=== PATIENT | female | born 1935 | race Caucasian/White ===

== ENCOUNTER 2022-08-10 10:22 | Emergency (ER) | payer MEDICARE, OTHER ==
[~2022-08-10] VITALS: Ht 152 cm; Wt 80.0 kg
[2022-08-10 10:55] LABS: BASOPHILS # (AUTO) 0.1 10^3/uL (0.0-0.1); BASOPHILS % (AUTO) 1 % (0-10); EOSINOPHILS # (AUTO) 0.1 10^3/uL (0.0-0.3); EOSINOPHILS % (AUTO) 1 % (0-10); HEMATOCRIT 39 % (35-52); HEMOGLOBIN 13.2 g/dL (11.5-16.0); LYMPHOCYTES # (AUTO) 1.7 10^3/uL (1.0-4.0); LYMPHOCYTES % (AUTO) 22 % (12-44); MEAN CORPUSCULAR HEMOGLOBIN 32 pg (25-34); MEAN CORPUSCULAR HGB CONC 34 g/dL (32-36); MEAN CORPUSCULAR VOLUME 95 fL (80-99); MEAN PLATELET VOLUME 8.7 fL (9.0-12.2); MONOCYTES # (AUTO) 0.5 10^3/uL (0.0-1.0); MONOCYTES % (AUTO) 7 % (0-12); NEUTROPHILS # (AUTO) 5.3 10^3/uL (1.8-7.8); NEUTROPHILS % (AUTO) 69 % (42-75); PLATELET COUNT 274 10^3/uL (130-400); WHITE BLOOD COUNT 7.7 10^3/uL (4.3-11.0)
--- NOTE | 2022-08-10 11:05 | Diagnostic Imaging Report ---
CHEST 1 VIEW AP/PA ONLY Indication: Back pain Comparison: None available. Findings: Patchy opacities are present in the right mid and left lower lung zones. No pleural effusion or pneumothorax. Normal heart size. Impression: 1. Ill-defined bilateral pulmonary opacities are most likely due to atelectasis. Atypical infection is also possibility. Dictated by: Dictated on workstation # [id number]
--- NOTE | 2022-08-10 11:06 | Diagnostic Imaging Report ---
SHOULDER 2 VIEW LEFT INDICATION: Left shoulder pain COMPARISON: None available. TECHNIQUE: 2 views left shoulder FINDINGS: No acute fracture. The glenohumeral and acromioclavicular joints are normal in alignment. Osteoarthritis of the acromioclavicular joint. Subacromial space is well preserved. No abnormal soft tissue mineralizations. Left axillary lymph node dissection. IMPRESSION: No fracture about the left shoulder. Dictated by: Dictated on workstation # [id number]
[2022-08-10 11:21] LABS: ALANINE AMINOTRANSFERASE 11 U/L (0-55); ALBUMIN 3.8 GM/DL (3.2-4.5); ALKALINE PHOSPHATASE 98 U/L (40-136); BILIRUBIN,TOTAL 0.3 MG/DL (0.1-1.0); BUN/CREATININE RATIO 24; CALCIUM 9.1 MG/DL (8.5-10.1); CARBON DIOXIDE 20 MMOL/L (21-32); CHLORIDE 106 MMOL/L (98-107); CREATININE SERUM 1.35 MG/DL (0.60-1.30); GFR ESTIMATED 39; GLUCOSE 152 MG/DL (70-105); POTASSIUM 4.2 MMOL/L (3.6-5.0); SODIUM 138 MMOL/L (135-145); TOTAL PROTEIN 6.9 GM/DL (6.4-8.2)
[2022-08-10 11:25] LABS: PROTHROMBIN TIME PATIENT 12.4 SEC (12.2-14.7)
[2022-08-10 11:26] LABS: INR 0.9 (0.8-1.4)
--- NOTE | 2022-08-10 11:38 | Diagnostic Imaging Report ---
SHOULDER 2 VIEW RIGHT INDICATION: Right shoulder pain COMPARISON: None available. TECHNIQUE: 2 views of right shoulder FINDINGS: No acute fracture. The glenohumeral and acromioclavicular joints are normal in alignment. Mild degenerative arthritis of the glenohumeral joint. Subacromial space is well preserved. No abnormal soft tissue mineralizations. IMPRESSION: No acute osseous abnormality about the right shoulder. Dictated by: Dictated on workstation # [id number]
[2022-08-10] MEDS ORDERED: HYDROcodone/APAP 5 MG/325 MG (LORTAB) TAB PO ONE (12:15)
--- NOTE | 2022-08-10 12:17 | ED Upper Extremity ---
General Chief Complaint: Back Problems Stated Complaint: BACK PAIN Nursing Triage Note: Patient has presented to ER by EMS with cc of upper back and bilateral shoulder pain. Patient has stated that hurt her shoulder on 08/03/2022 - she was buckling her seat belt and hurt her left shoulder. It has hurt ever since the . She states that over the last few days both of her shoulder hurt. She reports that her right shoulder was severe this morning. She denies any other known injury or trauma to her back and shoulders. She reports taking meloxicam and tyelnol arthritis for the pain. Source: patient, EMS, RN notes reviewed, EMS notes reviewed Exam Limitations: no limitations History of Present Illness Date Seen by Provider: Aug 10, 2022 Time Seen by Provider: 11:30 Initial Comments 86-year-old right-handed female patient brought in by EMS because of bilateral shoulder pain. Patient complaining of left shoulder pain since August 03 after she tried to buckling her seatbelt as a constant pain that getting worse with movement. Patient stated she gradually started to have pain in the right shoulder and this morning her right shoulder was 9/10. Patient denies focal neurodeficit, nausea and vomiting, chest pain, shortness of breath, other injuries. EMS reported that family told them she became more anxious since she finalize her arrangement 1 week ago. Allergies and Home Medications Allergies Coded Allergies: No Known Allergies (Verified Allergy, Unknown, 08/10/22) Patient Home Medication List Home Medication List Reviewed: Yes Hydrocodone/Acetaminophen (Hydrocodone-Acetamin 5-325 mg) 5 Mg-325 Mg Tablet, 1 TAB PO Q6H PRN for PAIN-MODERATE (5-7) Prescribed by: Anai john on 08/10/22 1219 Review of Systems Constitutional: no symptoms reported EENTM: no symptoms reported Respiratory: no symptoms reported Cardiovascular: no symptoms reported Gastrointestinal: no symptoms reported Genitourinary: no symptoms reported Musculoskeletal: see HPI Skin: no symptoms reported Psychiatric/Neurological: See HPI All Other Systems Reviewed Negative Unless Noted: Yes Past Henvdcn-Tgexlm-Cfhlsa Hx Patient Social History Tobacco Use?: No Use of E-Cig and/or Vaping dev: No Substance use?: No Alcohol Use?: No Physical Exam Vital Signs Vital Signs - First Documented 08/10/22 11:00 Temp 35.6 Pulse 71 Resp 20 B/P (MAP) 148/99 (115) Pulse Ox 95 O2 Delivery Room Air Capillary Refill : Height, Weight, BMI Height: '" Weight: lbs. oz. kg; 34.00 BMI Method: General Appearance: mild distress (Anxious), obese HEENT: PERRL/EOMI, normal ENT inspection Neck: non-tender, full range of motion Cardiovascular: regular rate, rhythm, no edema, no gallop Respiratory: chest non-tender, lungs clear, normal breath sounds, no respiratory distress Gastrointestinal: normal bowel sounds, non tender, soft Shoulder: normal inspection, non-tender, swelling (Painful range of motion without deformity or tenderness of bilateral shoulders) Elbow/Forearm: normal inspection Wrist: Yes normal inspection Hand: normal inspection Neurologic/Tendon: normal sensation, normal motor functions Neurologic/Psychiatric: no motor/sensory deficits, alert Skin: normal color Progress/Results/Core Measures Results/Orders Lab Results Laboratory Tests Test 08/10/22 10:41 Range/Units White Blood Count 7.7 4.3-11.0 10^3/uL Red Blood Count 4.15 3.80-5.11 10^6/uL Hemoglobin 13.2 11.5-16.0 g/dL Hematocrit 39 35-52 % Mean Corpuscular Volume 95 80-99 fL Mean Corpuscular Hemoglobin 32 25-34 pg Mean Corpuscular Hemoglobin Concent 34 32-36 g/dL Red Cell Distribution Width 14.5 10.0-14.5 % Platelet Count 274 130-400 10^3/uL Mean Platelet Volume 8.7 L 9.0-12.2 fL Immature Granulocyte % (Auto) 0 % Neutrophils (%) (Auto) 69 42-75 % Lymphocytes (%) (Auto) 22 12-44 % Monocytes (%) (Auto) 7 0-12 % Eosinophils (%) (Auto) 1 0-10 % Basophils (%) (Auto) 1 0-10 % Neutrophils # (Auto) 5.3 1.8-7.8 10^3/uL Lymphocytes # (Auto) 1.7 1.0-4.0 10^3/uL Monocytes # (Auto) 0.5 0.0-1.0 10^3/uL Eosinophils # (Auto) 0.1 0.0-0.3 10^3/uL Basophils # (Auto) 0.1 0.0-0.1 10^3/uL Immature Granulocyte # (Auto) 0.0 0.0-0.1 10^3/uL Prothrombin Time 12.4 12.2-14.7 SEC INR Comment 0.9 0.8-1.4 Activated Partial Thromboplast Time 37 H 24-35 SEC Sodium Level 138 135-145 MMOL/L Potassium Level 4.2 3.6-5.0 MMOL/L Chloride Level 106 98-107 MMOL/L Carbon Dioxide Level 20 L 21-32 MMOL/L Anion Gap 12 5-14 MMOL/L Blood Urea Nitrogen 32 H 7-18 MG/DL Creatinine 1.35 H 0.60-1.30 MG/DL Estimat Glomerular Filtration Rate 39 BUN/Creatinine Ratio 24 Glucose Level 152 H 70-105 MG/DL Calcium Level 9.1 8.5-10.1 MG/DL Corrected Calcium 9.3 8.5-10.1 MG/DL Total Bilirubin 0.3 0.1-1.0 MG/DL Aspartate Amino Transf (AST/SGOT) 16 5-34 U/L Alanine Aminotransferase (ALT/SGPT) 11 0-55 U/L Alkaline Phosphatase 98 40-136 U/L Troponin I < 0.30 <0.30 NG/ML Total Protein 6.9 6.4-8.2 GM/DL Albumin 3.8 3.2-4.5 GM/DL My Orders Orders - ANAI JOHN MD Comprehensive Metabolic Panel (08/10/22 10:26) Protime With Inr (08/10/22 10:26) Partial Thromboplastin Time (08/10/22 10:26) Ed Iv/Invasive Line Start (08/10/22 10:26) Ekg Tracing (08/10/22 10:38) Chest 1 View Ap/Pa Only (08/10/22 10:38) Shoulder 2 View Left (08/10/22 10:38) Troponin I Fs (08/10/22 10:38) Cbc With Automated Diff (08/10/22 10:41) Shoulder 2 View Right (08/10/22 11:04) Hydrocodone/Apap 5/325 Tablet (Lortab 5 (08/10/22 12:15) Medications Given in ED Current Medications Medications Dose Ordered Sig/Phani Route Start Time Stop Time Status Last Admin Dose Admin Acetaminophen/ Hydrocodone Bitart 1 ea ONCE ONCE PO 08/10/22 12:15 08/10/22 12:16 DC 08/10/22 12:09 1 EA Vital Signs/I&O 08/10/22 08/10/22 11:00 12:48 Temp 35.6 Pulse 71 63 Resp 20 18 B/P (MAP) 148/99 (115) 116/55 Pulse Ox 95 95 O2 Delivery Room Air Room Air Blood Pressure Mean: 115 Progress Progress Note : Progress Note 86-year-old female patient with complaining of bilateral shoulder pain for 1 week that getting worse on right side today. Patient was anxious and had unremarkable physical exam except for painful range of motion of right shoulder. EKG and chest x-ray and bilateral shoulder x-ray and CBC and CMP and troponin and was ordered and reviewed by me without acute finding except for BUN of 32 and creatinine of 1.35 without previous labs to compare. Patient currently taking meloxicam and advised to stop taking meloxicam and prescription for [place] was given. Patient treated with pain medication in ER and felt better. Patient informed about overusing his right shoulder after injury of left shoulder and having pain. Patient advised to apply ice and follow-up with primary care physician for possible physical therapy arrangement. Initial ECG Impression Date: Aug 10, 2022 Initial ECG Impression Time: 11:07 Initial ECG Intervals EKG interpreted by me. EKG showed sinus rhythm at rate of 62, prolonged ME interval of 221, QT interval of 405 and QTc of 411, QRS duration of 74, normal axis, no acute ST and T wave elevation. Diagnostic Imaging Diagonstic Imaging: Xray Plain Films/CT/US/NM/MRI: other (Shoulders and chest) Comments Bilateral shoulders x-ray and 1 view chest x-ray interpreted by me and did not show acute finding. Bilateral shoulders x-ray and 1 view chest x-ray interpreted by radiologist and reviewed by me and did not show acute finding: [facility], [place] NAME: MARYANVINCENT [facility] REC#: [id number] PT STATUS: REG ER : 1935 PHYSICIAN: ANAI JOHN MD ADMIT DATE: 08/10/22/ER FS Signed Date of Exam:08/10/22 SHOULDER 2 VIEW RIGHT SHOULDER 2 VIEW RIGHT INDICATION: Right shoulder pain COMPARISON: None available. TECHNIQUE: 2 views of right shoulder FINDINGS: No acute fracture. The glenohumeral and acromioclavicular joints are normal in alignment. Mild degenerative arthritis of the glenohumeral joint. Subacromial space is well preserved. No abnormal soft tissue mineralizations. IMPRESSION: No acute osseous abnormality about the right shoulder. Dictated by: Dictated on workstation # [id number] Dict: 08/10/22 1136 Trans: 08/10/221136 [facility] [id number] Interpreted by: ROSA VALENTIN MD Electronically signed by: ROSA VALENTIN MD 08/10/221136 [facility], [place] NAME: VINCENT STEINBERG [facility] REC#: [id number] PT STATUS: REG ER : 1935 PHYSICIAN: ANAI JOHN MD ADMIT DATE: 08/10/22/ER FS Signed Date of Exam:08/10/22 SHOULDER 2 VIEW LEFT SHOULDER 2 VIEW LEFT INDICATION: Left shoulder pain COMPARISON: None available. TECHNIQUE: 2 views left shoulder FINDINGS: No acute fracture. The glenohumeral and acromioclavicular joints are normal in alignment. Osteoarthritis of the acromioclavicular joint. Subacromial space is well preserved. No abnormal soft tissue mineralizations. Left axillary lymph node dissection. IMPRESSION: No fracture about the left shoulder. Dictated by: Dictated on workstation # [id number] Dict: 08/10/22 1104 Trans: 08/10/22 110 [facility] [id number] Interpreted by: ROSA VALENTIN MD Electronically signed by: ROSA VALENTIN MD 08/10/22 110 [facility] [place] NAME: VINCENT STEINBERG [facility] REC#: [id number] PT STATUS: REG ER : 1935 PHYSICIAN: ANAI JOHN MD ADMIT DATE: 08/10/22/ER FS Signed Date of Exam:08/10/22 CHEST 1 VIEW AP/PA ONLY CHEST 1 VIEW AP/PA ONLY Indication: Back pain Comparison: None available. Findings: Patchy opacities are present in the right mid and left lower lung zones. No pleural effusion or pneumothorax. Normal heart size. Impression: 1. Ill-defined bilateral pulmonary opacities are most likely due to atelectasis. Atypical infection is also possibility. Dictated by: Dictated on workstation # [id number] Dict: 08/10/22 1102 Trans: 08/10/22 1140 CV [id number] Interpreted by: ROSA VALENTIN MD Electronically signed by: ROSA VALENTIN MD 08/10/22 1140 Departure Impression Primary Impression: Bilateral shoulder pain Qualified Codes: M25.511 - Pain in right shoulder; M25.512 - Pain in left shoulder Additional Impression: Renal insufficiency Disposition: 01 HOME, SELF-CARE Condition: Improved Departure-Patient Inst. Decision time for Depature: 12:16 Patient Instructions: Acute Pain, Adult, Shoulder Pain (DC) Add. Discharge Instructions: Do not take meloxicam for your pain Do not take Aleve and Advil/ ibuprofen because of abnormal kidney test Follow-up with your primary care physician for referral for physical therapy Apply ice on the affected area Return to ER as needed All discharge instructions reviewed with patient and/or family. Voiced understanding. Scripts Hydrocodone/Acetaminophen (Hydrocodone-Acetamin 5-325 mg) 5 Mg-325 Mg Tablet 1 TAB PO Q6H PRN for PAIN-MODERATE (5-7), #14 TAB Prov: ANAI JOHN MD 08/10/22 ANAI JOHN MD Aug 10, 2022 12:17
[2022-08-10] MEDS ORDERED: ACHD5005 PO (12:18)
[2022-08-10 12:48] VITALS: BP 116/55
== END 2022-08-10 12:25 | disposition home or self-care (01) ==
LOC: EDUNIT# 10:22 → ER FS 10:25
DX: M25.511 Pain in right shoulder (principal); M25.512 Pain in left shoulder; N28.9 Disorder of kidney and ureter, unspecified; E66.9 Obesity, unspecified; Z68.34 Body mass index [BMI] 34.0-34.9, adult
CPT/HCPCS: 36415; 71045; 73030; 80053; 84484; 85007; 85025; 85610; 85730; 93005

== ENCOUNTER 2022-08-27 13:03 | Emergency (ER) | payer MEDICARE ==
[~2022-08-27 13:03] MED LIST: ACHD5005 PO
--- NOTE | 2022-08-27 13:12 | ED Dyspnea ---
General Stated Complaint: SOB History of Present Illness Date Seen by Provider: Aug 27, 2022 Time Seen by Provider: 13:03 Initial Comments 86-year-old female with PMH of pneumonia for which she finished a course of antibiotics last week, is here with complaints of shortness of breath which began today morning. Patient has no other symptoms. Denies chest pain, palpitations, diaphoresis, abdominal pain, nausea and vomiting, dizziness, fever, cough, URI symptoms. Allergies and Home Medications Allergies Coded Allergies: No Known Allergies (Verified Allergy, Unknown, 08/10/22) Patient Home Medication List Home Medication List Reviewed: Yes Hydrocodone/Acetaminophen (Hydrocodone-Acetamin 5-325 mg) 5 Mg-325 Mg Tablet, 1 TAB PO Q6H PRN for PAIN-MODERATE (5-7) Prescribed by: Anai leal on 08/10/22 1219 Review of Systems Review of Systems Constitutional: no symptoms reported EENTM: no symptoms reported Respiratory: see HPI, short of breath Cardiovascular: no symptoms reported Gastrointestinal: no symptoms reported Physical Exam Vital Signs Vital Signs - First Documented 08/27/22 13:03 Temp 35.9 Pulse 78 Resp 18 B/P (MAP) 113/58 (76) Pulse Ox 95 O2 Delivery Room Air Capillary Refill : Height, Weight, BMI Height: '" Weight: lbs. oz. kg; 34.00 BMI Method: General Appearance: No Apparent Distress, WD/WN, Anxious HEENT: Normal ENT Inspection Neck: Full Range of Motion Respiratory: Chest Non Tender, Lungs Clear, Normal Breath Sounds, No Accessory Muscle Use, No Respiratory Distress Cardiovascular: Regular Rate, Rhythm, No Edema Gastrointestinal: Normal Bowel Sounds, Non Tender, Soft Extremity: Normal Range of Motion Neurologic/Psychiatric: Alert, Oriented x3, Normal Mood/Affect Skin: Normal Color Focused Exam Lactate Level 08/27/22 13:21: Lactic Acid Level 2.85*H Lactic Acid Level Laboratory Tests Test 08/27/22 13:21 Lactic Acid Level 2.85 MMOL/L (0.50-2.00) *H Progress/Results/Core Measures Results/Orders Lab Results Laboratory Tests Test 08/27/22 13:07 08/27/22 13:21 Range/Units White Blood Count 11.0 4.3-11.0 10^3/uL Red Blood Count 4.18 3.80-5.11 10^6/uL Hemoglobin 13.4 11.5-16.0 g/dL Hematocrit 40 35-52 % Mean Corpuscular Volume 95 80-99 fL Mean Corpuscular Hemoglobin 32 25-34 pg Mean Corpuscular Hemoglobin Concent 34 32-36 g/dL Red Cell Distribution Width 13.8 10.0-14.5 % Platelet Count 348 130-400 10^3/uL Mean Platelet Volume 8.5 L 9.0-12.2 fL Immature Granulocyte % (Auto) 0 % Neutrophils (%) (Auto) 68 42-75 % Lymphocytes (%) (Auto) 21 12-44 % Monocytes (%) (Auto) 9 0-12 % Eosinophils (%) (Auto) 0 0-10 % Basophils (%) (Auto) 1 0-10 % Neutrophils # (Auto) 7.5 1.8-7.8 10^3/uL Lymphocytes # (Auto) 2.3 1.0-4.0 10^3/uL Monocytes # (Auto) 1.0 0.0-1.0 10^3/uL Eosinophils # (Auto) 0.0 0.0-0.3 10^3/uL Basophils # (Auto) 0.1 0.0-0.1 10^3/uL Immature Granulocyte # (Auto) 0.0 0.0-0.1 10^3/uL Prothrombin Time 12.4 12.2-14.7 SEC INR Comment 0.9 0.8-1.4 Activated Partial Thromboplast Time 41 H 24-35 SEC D-Dimer 1.71 H 0.00-0.49 UG/ML Sodium Level 133 L 135-145 MMOL/L Potassium Level 4.6 3.6-5.0 MMOL/L Chloride Level 98 98-107 MMOL/L Carbon Dioxide Level 21 21-32 MMOL/L Anion Gap 14 5-14 MMOL/L Blood Urea Nitrogen 22 H 7-18 MG/DL Creatinine 1.15 0.60-1.30 MG/DL Estimat Glomerular Filtration Rate 47 BUN/Creatinine Ratio 19 Glucose Level 100 70-105 MG/DL Calcium Level 9.4 8.5-10.1 MG/DL Corrected Calcium 9.7 8.5-10.1 MG/DL Magnesium Level 2.3 1.6-2.4 MG/DL Total Bilirubin 0.2 0.1-1.0 MG/DL Aspartate Amino Transf (AST/SGOT) 22 5-34 U/L Alanine Aminotransferase (ALT/SGPT) 18 0-55 U/L Alkaline Phosphatase 97 40-136 U/L Troponin I < 0.30 <0.30 NG/ML Pro-B-Type Natriuretic Peptide < 36.0 <450.0 PG/ML Total Protein 7.3 6.4-8.2 GM/DL Albumin 3.6 3.2-4.5 GM/DL Lactic Acid Level 2.85 *H 0.50-2.00 MMOL/L My Orders Orders - JESSICA ONTIVEROS MD Chest 1 View Ap/Pa Only (08/27/22 13:09) Cbc With Automated Diff (08/27/22 13:10) Comprehensive Metabolic Panel (08/27/22 13:10) Fibrin Degradation Products (08/27/22 13:10) Lactic Acid Analyzer (08/27/22 13:10) Magnesium (08/27/22 13:10) Protime With Inr (08/27/22 13:10) Partial Thromboplastin Time (08/27/22 13:10) Probnp Fs (08/27/22 13:10) Troponin I Fs (08/27/22 13:10) Continuous Ekg Monitoring (08/27/22 13:10) Ekg Tracing (08/27/22 13:10) Albuterol/Ipra Inhalation Soln (Duoneb I (08/27/22 13:15) Dexamethasone Injection (Decadron Inje (08/27/22 13:15) Svn Small Volume Nebulizer (08/27/22 13:11) Ct Angio Chest W (08/27/22 13:45) Ns Iv 1000 Ml (Sodium Chloride 0.9%) (08/27/22 14:00) Iohexol Injection (Omnipaque 350 Mg/Ml 1 (08/27/22 14:15) Received Contrast (Hold Metformin- Contr (08/27/22 14:15) Ns (Ivpb) (Sodium Chloride 0.9% Ivpb Bag (08/27/22 14:15) Sodium Chloride Flush (Catheter Flush Sy (08/27/22 22:00) Medications Given in ED Current Medications Medications Dose Ordered Sig/Phani Route Start Time Stop Time Status Last Admin Dose Admin Albuterol/ Ipratropium 3 ml ONCE ONCE INH 08/27/22 13:15 08/27/22 13:16 DC 08/27/22 13:26 3 ML Dexamethasone Sodium Phosphate 10 mg ONCE ONCE IV 08/27/22 13:15 08/27/22 13:16 DC 08/27/22 13:26 10 MG Iohexol 100 ml ONCE ONCE IV 08/27/22 14:15 08/27/22 14:16 DC 08/27/22 14:19 100 ML Sodium Chloride 100 ml ONCE ONCE IV 08/27/22 14:15 08/27/22 14:16 DC 08/27/22 14:18 100 ML Sodium Chloride 1,000 ml @ 999 mls/hr Q1H1M ONCE IV 08/27/22 14:00 08/27/22 15:00 DC 08/27/22 13:57 999 MLS/HR Vital Signs/I&O 08/27/22 13:03 Temp 35.9 Pulse 78 Resp 18 B/P (MAP) 113/58 (76) Pulse Ox 95 O2 Delivery Room Air Progress Progress Note : Progress Note 1. SOB DUE TO ACUTE ANXIETY: - CXR: There is interval improved aeration of both lungs with residual minimal airspace opacities involving right midlung field left lung base which may represent atelectasis versus infiltrates. - CBC/ CMP: - BNP unremarkable - Troponin/ EKG: non-ischemic - Duo Neb x1, Decadron 10mg iv STAT, This didn't really help the pt's symptoms - Prescription for hydroxyzine for acute anxiety. - Follow up with PCP in the next 7 to 10 days. -Patient does not have any acute source of infection or acute pathological causes of her shortness of breath. Patient has had stable vital signs the entire time she was in the ER and has not been needing any oxygen. -The patient was seen in the ED, and treated appropriately to presentation at a specific point in time. Patient is informed that there is a possibility that disease and illness can evolve and change in acuity rapidly or slowly after patient is discharged from the ER. Precautionary advice given to the patient for immediate return to ER if symptoms worsen or do not resolve, and to seek emergency care sooner rather than later. Pt also advised on the importance of PCP follow up and compliance with management and follow up plan with PCP and/or specialist, as this is part of the management plan. Pt verbally expressed understanding. 2. ELEVATED D-DIMER: - D-dimer: 1.71 - CTA CHEST: negative for PE. Incidental finding of gallstones without cholecystitis. - Advised to follow up with general surgery clinic. Diagnostic Imaging Diagonstic Imaging: Xray Plain Films/CT/US/NM/MRI: chest Comments [facility], [place] NAME: VINCENT STEINBERG [facility] REC#: [id number] PT STATUS: REG ER : 1935 PHYSICIAN: JESSICA ONTIVEROS MD ADMIT DATE: 08/27/22/ER FS Signed Date of Exam:08/27/22 CT ANGIO CHEST W PROCEDURE: CT angiography of the chest with contrast. TECHNIQUE: Multiple contiguous axial images were obtained through the chest after uneventful bolus administration of intravenous contrast. 3D reconstructed CTA MIP acquisitions were also performed. Auto Exposure Controls were utilized during the CT exam to meet ALARA standards for radiation dose reduction. INDICATION: Elevated D-dimer. Shortness of breath. COMPARISON: Chest radiograph performed earlier the same date. FINDINGS: This helical CT pulmonary angiogram is diagnostic to the subsegmental level branches of the pulmonary artery and demonstrates no pulmonary emboli. The heart is prominent. There is no pericardial effusion. There is no axillary, mediastinal, or hilar adenopathy. The lungs demonstrate no consolidation, nodules, or other parenchymal abnormality. No pleural effusion is seen. Osseous structures appear normal. Gallstones are seen filling the gallbladder lumen. IMPRESSION: 1. No acute pulmonary embolus. 2. Cardiomegaly. No overt pulmonary edema. 3. No focal consolidations or pleural effusions. 4. Cholelithiasis without CT evidence of acute cholecystitis. Dictated by: Dictated on workstation # [id number] Dict: 08/27/22 1448 Trans: 08/27/22 1453 [facility] [id number] Interpreted by: FOREST ENGLAND DO Electronically signed by: FOREST ENGLAND DO 08/27/22 1453 NAME: VINCENT STEINBERG MED REC#: [id number] PT STATUS: REG ER : 1935 PHYSICIAN: JESSICA ONTIVEROS MD ADMIT DATE: 08/27/22/ER FS Draft Date of Exam:08/27/22 CHEST 1 VIEW AP/PA ONLY Clinical indications: Patient with shortness of breath. EXAM: Portable chest x-ray upright view. COMPARISON: Chest x-ray dated 08/10/2022. FINDINGS: Lungs/pleura: There is interval slight improved aeration of both lungs. There are subtle airspace opacities involving the right midlung field and left lung base. The remainder the lungs are now clear. There is no pneumothorax. There is no pleural effusion. Mediastinum: Unremarkable. Pulmonary vasculature: Unremarkable. Heart: Unremarkable. Bones/extrathoracic soft tissue: There are degenerative spurs involving the thoracic spine. IMPRESSION: There is interval improved aeration of both lungs with residual minimal airspace opacities involving right midlung field left lung base which may represent atelectasis versus infiltrates. Dictated on workstation # [id number] Dict: 08/27/22 1327 Trans: 08/27/22 1331 [facility] [id number] Interpreted by: KRISTINA THOMASON MD Electronically signed by: Departure Impression Primary Impression: Acute anxiety Additional Impression: Gallstones Disposition: 01 HOME, SELF-CARE Condition: Improved Departure-Patient Inst. Referrals: KELLY SNEED MD (PCP) Primary Care Physician Patient Instructions: Gallstones, Gallstones (DC), Anxiety, Adult ED Add. Discharge Instructions: - Prescription for hydroxyzine for acute anxiety. Take every 6 hours only if severe anxiety is present. - Follow up with PCP in the next 7 to 10 days. - Advised to follow up with general surgery clinic. - Adequate hydration advised Scripts Hydroxyzine HCl (Hydroxyzine HCl) 50 Mg Tablet 50 MG PO Q6H for Anxiety for 5 Days, #20 TAB Prov: JESSICA ONTIVEROS MD 08/27/22 JESSICA ONTIVEROS MD Aug 27, 2022 13:12
[2022-08-27 13:14] LABS: BASOPHILS # (AUTO) 0.1 10^3/uL (0.0-0.1); BASOPHILS % (AUTO) 1 % (0-10); EOSINOPHILS % (AUTO) 0 % (0-10); HEMATOCRIT 40 % (35-52); HEMOGLOBIN 13.4 g/dL (11.5-16.0); LYMPHOCYTES # (AUTO) 2.3 10^3/uL (1.0-4.0); LYMPHOCYTES % (AUTO) 21 % (12-44); MEAN CORPUSCULAR HEMOGLOBIN 32 pg (25-34); MEAN CORPUSCULAR HGB CONC 34 g/dL (32-36); MEAN CORPUSCULAR VOLUME 95 fL (80-99); MEAN PLATELET VOLUME 8.5 fL (9.0-12.2); MONOCYTES % (AUTO) 9 % (0-12); NEUTROPHILS # (AUTO) 7.5 10^3/uL (1.8-7.8); NEUTROPHILS % (AUTO) 68 % (42-75); PLATELET COUNT 348 10^3/uL (130-400)
[2022-08-27] MEDS ORDERED: RT-ALBUTEROL/IPRATROPIUM 3 ML (DUONEB) VIAL INH ONE (13:15)
--- NOTE | 2022-08-27 13:32 | Diagnostic Imaging Report ---
Clinical indications: Patient with shortness of breath. EXAM: Portable chest x-ray upright view. COMPARISON: Chest x-ray dated 08/10/2022. FINDINGS: Lungs/pleura: There is interval slight improved aeration of both lungs. There are subtle airspace opacities involving the right midlung field and left lung base. The remainder the lungs are now clear. There is no pneumothorax. There is no pleural effusion. Mediastinum: Unremarkable. Pulmonary vasculature: Unremarkable. Heart: Unremarkable. Bones/extrathoracic soft tissue: There are degenerative spurs involving the thoracic spine. IMPRESSION: There is interval improved aeration of both lungs with residual minimal airspace opacities involving right midlung field left lung base which may represent atelectasis versus infiltrates. Dictated by: Dictated on workstation # [id number]
[2022-08-27 13:40] LABS: FIBRIN DEGRADATION PRODUCTS 1.71 UG/ML (0.00-0.49); INR 0.9 (0.8-1.4); PROTHROMBIN TIME PATIENT 12.4 SEC (12.2-14.7)
[2022-08-27 13:50] LABS: ALANINE AMINOTRANSFERASE 18 U/L (0-55); ALKALINE PHOSPHATASE 97 U/L (40-136); BILIRUBIN,TOTAL 0.2 MG/DL (0.1-1.0); BUN/CREATININE RATIO 19; CALCIUM 9.4 MG/DL (8.5-10.1); CARBON DIOXIDE 21 MMOL/L (21-32); CHLORIDE 98 MMOL/L (98-107); CREATININE SERUM 1.15 MG/DL (0.60-1.30); GFR ESTIMATED 47; GLUCOSE 100 MG/DL (70-105); MAGNESIUM 2.3 MG/DL (1.6-2.4); POTASSIUM 4.6 MMOL/L (3.6-5.0); SODIUM 133 MMOL/L (135-145)
[2022-08-27 13:51] LABS: ALBUMIN 3.6 GM/DL (3.2-4.5); TOTAL PROTEIN 7.3 GM/DL (6.4-8.2)
[2022-08-27] MEDS ORDERED: NS IV 1000 ML 1,000 ML IV ONE (14:00)
[2022-08-27] MEDS ORDERED: NS 100 ML (IVPB) BAG IV ONE (14:15)
[2022-08-27] MEDS ORDERED: IOHEXOL 350 MG/ML 100 ML (OMNIPAQUE 350) VIAL IV ONE (14:15)
[2022-08-27] MEDS ORDERED: HOLD METFORMIN - RECEIVED CONTRAST 20 ML VIAL IV SCH (14:15)
--- NOTE | 2022-08-27 14:55 | Diagnostic Imaging Report ---
PROCEDURE: CT angiography of the chest with contrast. TECHNIQUE: Multiple contiguous axial images were obtained through the chest after uneventful bolus administration of intravenous contrast. 3D reconstructed CTA MIP acquisitions were also performed. Auto Exposure Controls were utilized during the CT exam to meet ALARA standards for radiation dose reduction. INDICATION: Elevated D-dimer. Shortness of breath. COMPARISON: Chest radiograph performed earlier the same date. FINDINGS: This helical CT pulmonary angiogram is diagnostic to the subsegmental level branches of the pulmonary artery and demonstrates no pulmonary emboli. The heart is prominent. There is no pericardial effusion. There is no axillary, mediastinal, or hilar adenopathy. The lungs demonstrate no consolidation, nodules, or other parenchymal abnormality. No pleural effusion is seen. Osseous structures appear normal. Gallstones are seen filling the gallbladder lumen. IMPRESSION: 1. No acute pulmonary embolus. 2. Cardiomegaly. No overt pulmonary edema. 3. No focal consolidations or pleural effusions. 4. Cholelithiasis without CT evidence of acute cholecystitis. Dictated by: Dictated on workstation # [id number]
[2022-08-27 15:20] VITALS: BP 111/55
[2022-08-27] MEDS ORDERED: HYDR50TA76 PO (15:21)
[2022-08-27] MEDS ORDERED: CATHETER FLUSH 10 ML SYR IVP SCH (22:00)
== END 2022-08-27 15:24 | disposition home or self-care (01) ==
LOC: EDUNIT# 13:03 → ER FS 13:04
DX: F41.9 Anxiety disorder, unspecified (principal); K80.20 Calculus of gallbladder without cholecystitis without obstruction; R79.1 Abnormal coagulation profile
CPT/HCPCS: 36415; 71045; 71275; 80053; 83605; 83735; 83880; 84484; 85025; 85379; 85610; 85730; 93005; 94640; Q9967

== ENCOUNTER 2022-09-09 05:33 | Outpatient (CLI) | payer MEDICARE ==
[~2022-09-09] VITALS: Ht 149.8 cm; Wt 79.3 kg
[~2022-09-09 05:33] MED LIST changes: +HYDR50TA76 PO
[2022-09-09] MEDS ORDERED: ALLO100T PO (13:25)
[2022-09-09] MEDS ORDERED: TRAM50TA3 PO (13:25)
[2022-09-09] MEDS ORDERED: TRIA1CAP84 PO (13:25)
[2022-09-09] MEDS ORDERED: MELO15TA39 PO (13:25)
[2022-09-09] MEDS ORDERED: LEVO75CA5 PO (13:25)
[2022-09-09] MEDS ORDERED: RT-ALBUINH INH (13:25)
[2022-09-09] MEDS ORDERED: LISI20TA26 PO (13:25)
[2022-09-09] MEDS ORDERED: SIMV20TA26 PO (13:25)
== END 2022-09-09 14:08 ==
LOC: PREOP 05:33
PROVIDERS: ATTEND Surgery
DX: Z01.818 Encounter for other preprocedural examination (principal)

== ENCOUNTER 2022-09-16 07:05 | Day surgery (SDC) | payer MEDICARE ==
[2022-09-16] VITALS (10 sets, daily range): BP systolic 89–111; BP diastolic 40–57
[~2022-09-16] VITALS: Ht 149 cm; Wt 79.3 kg
[~2022-09-16 07:05] MED LIST changes: +ALLO100T PO; +LEVO75CA5 PO; +LISI20TA26 PO; +MELO15TA39 PO; +RT-ALBUINH INH; +SIMV20TA26 PO; +TRAM50TA3 PO; +TRIA1CAP84 PO
[2022-09-16] MEDS ORDERED: CATHETER FLUSH 10 ML SYR IVP PRN (07:15)
[2022-09-16] MEDS ORDERED: ceFAZolin INJECTION 2,000 MG in NS (IVPB) 50 ML 50 ML IV ONE (07:15)
[2022-09-16] MEDS ORDERED: LIDOCAINE 1% w/EPI 1:100,000 20 ML VIAL ONE (07:31)
[2022-09-16] MEDS: LACTATED RINGERS 1,000 ML IV PRN ×2 (07:35→08:55)
--- NOTE | 2022-09-16 08:20 | Progress Note-Pre Operative ---
Pre-Operative Progress Note Date H&P Reviewed: Sep 16, 2022 Time H&P Reviewed: 08:15 History & Physical: H&P Reviewed, Patient Examed, No changes noted Pre-Operative Diagnosis: Cholelithiasis/Cholecystitis JOSE COLORADO DO Sep 16, 2022 08:20
[2022-09-16] MEDS ORDERED: fentaNYL INJECTION 100 MCG/2 ML VIAL ONE ×2 (08:21→09:53)
[2022-09-16] MEDS ORDERED: ONDANSETRON 4 MG/2 ML (SDV) Z0FRAN ONE (08:21)
[2022-09-16] MEDS ORDERED: dexAMETHasone INJ 10 MG/ML 1 ML VIAL ONE (08:21)
[2022-09-16] MEDS ORDERED: LIDOCAINE PF 2% 5 ML VIAL ONE (08:21)
[2022-09-16] MEDS ORDERED: ROCURONIUM 50 MG/5 ML (ZEMURON) VIAL IV ONE (08:21)
[2022-09-16] MEDS ORDERED: proPOfol 200 MG/20 ML (DIPRIVAN) VIAL IV ONE (08:21)
[2022-09-16] MEDS ORDERED: NEOSTIGMINE (BLOXIVERZ ) 1 MG/1ML 10 ML VIAL ONE (09:02)
[2022-09-16] MEDS ORDERED: GLYCOPYRROLATE INJ 0.2 MG/ML 2 ML VIAL ONE (09:02)
--- NOTE | 2022-09-16 09:09 | Progress Note-Post Operative ---
Post-Operative Progess Note Surgeon (s)/Sweet Pickled Fruit Maker (s) Surgeon JOSE COLORADO DO Sweet Pickled Fruit Maker: Lucrecia Pre-Operative Diagnosis Cholelithiasis/Cholecystitis Post-Operative Diagnosis same Procedure & Operative Findings Date of Procedure 09/16/22 Procedure Performed/Findings PROCEDURE: Laparoscopic cholecystectomy with intraoperative cholangiogram. COMPLICATIONS: None. PROCEDURE: The patient was taken to the operating suite and was prepped and draped in sterile fashion. A surgical pause was performed. Just superior to the umbilicus, a 12 mm incision was made. Dissection was taken down to the fascia, which was then scored and grasped with a Gilda and the abdomen was then entered. An 0 Vicryl suture was placed in a ktessg-cr-yhuwv fashion and a Yeung trocar was placed and secured. Pneumoperitoneum was achieved. A 5mm trochar place in the subxyphoid and 2 in the right upper quadrant. The gallbladder was then grasped at the fundus and take in the superior direction. Another grasper was used at Flanagan's pouch to pull infero-lateral. The cystic duct and cystic artery were then dissected out. Clip was placed on the distal portion of the cystic duct which was then partially transected. An arrow catheter was inserted into the duct. The cholangiogram was then performed. No filling defects and contrast made its way into the duodenum. Catheter removed. Clips were placed on proximal portion of the cystic duct and then the duct was then transected. Clips were placed along the proximal and distal portion of the cystic artery which was then transected. Hook cautery was used to dissect the gallbladder from the gallbladder fossa achieving hemostasis. The gallbladder was placed in an Endobag and removed through the 12 mm trocar site. The abdomen was then re- inspected. Copious amounts of irrigation were used to irrigate the abdomen and there were no signs of active bleeding. Hemostasis had been achieved. The 12 mm fascial defect was then closed with 0 Vicryl suture that had been placed in a sqgjht-sh-zkwnp fashion. The abdomen was then desufflated, the trocars were removed. The abdomen was then washed and dried. The skin was then closed using 4-0 Monocryl in a subcuticular fashion. The abdomen was washed and dried and Skin Affix was place over incisions. Patient tolerated the procedure well without any complications and was taken to the recovery room in stable condition. Dr. Singer assisted on this case helping to make incisions, close incisions, identify anatomy and hold anatomy out of the way. Anesthesia Type GET Estimated Blood Loss Estimated blood loss (mL): scant Specimens/Packing Specimens Removed GB and contents JOSE COLORADO DO Sep 16, 2022 09:09
[2022-09-16] MEDS ORDERED: LIDOCAINE 1% w/EPI 1:100,000 20 ML VIAL INJ ONE (09:10)
[2022-09-16] MEDS ORDERED: ACHD5005 PO ×2 (09:11→13:10)
[2022-09-16] MEDS ORDERED: IOHEXOL 300 MG/ML 30 ML (OMNIPAQUE 300) VIAL INJ ONE (09:12)
--- NOTE | 2022-09-16 09:12 | Discharge Inst-Surgical ---
Discharge Inst-Surgical Depart Medication/Instructions New, Converted or Re-Newed RX: Transmitted to Pharmacy Patient Instructions Follow up Appt: Make appointment for 1 week. [phone] Instructions: No lifting greater than 20 pounds. No strenuous activity. May shower in 24 hours, no tub bath or soaking. Use incentive spirometer at home as directed. No Smoking Skin/Wound Care: May remove bandages in am. You need to leave the Dermabond on incision it will fall off on it's own. Symptoms to Report: Appetite Changes, Extremity Discoloration, Numbness/Tingling, Swelling Increased, Bleeding Excessive, Eyesight Changes, Pain Increased, Urine Color Change, Constipation(Persistent), Fever over 101 degree F, Pain/Pressure in chest, Urinating Difficulty, Cough Up/Vomit Blood, Heart Beat Irreg/Pounding, Pain/Pressure in jaw, Cramps in feet or legs, Lightheadedness, Pain/Pressure in shoulder, Diarrhea(Persistent), Memory Changes Suddenly, Questions/Concerns, Weight gain consecutive days, Dizziness/Fainting, Nausea/Vomiting, Shortness of Breath, Weight gain over 2 pounds If questions or concerns contact your physician Or seek help at emergency department. Activity Activity as Tolerated: Yes Activity Instructions: Avoid Stress to Incision Driving Instructions: No Driving/Refer to Diet Discharge Diet: Avoid Fatty Foods, Low Fat/Low Cholesterol Diet After 24 Hours: Clear Liquid if Nauseous If Any Problems/Questions/Issu: Contact Your Physician, Go to Emergency Room Skin/Wound Care Infection Signs and Symptoms: Increased Redness, Foul Odor of Wound, Increased Drainage, Skin Itchy or Has a Rash, Increased Swelling, Temperature Above 101 F Wound Care Comment: heating pad to shoulder or neck for pain tonight Bathing Instructions: Shower Stitches/[place]/Dermabond Dis: Willyond JOSE COLORADO DO Sep 16, 2022 09:12
[2022-09-16] MEDS ORDERED: SEVOFLURANE (ULTANE) 15 ML INHAL SOLN ONE (09:23)
[2022-09-16] MEDS ORDERED: HYDROmorphone INJECTION 2 MG/ML VIAL IV ONE (09:45)
[2022-09-16] MEDS ORDERED: fentaNYL INJECTION 100 MCG/2 ML VIAL IVP ONE (09:45)
[2022-09-16] MEDS ORDERED: ONDANSETRON 4 MG/2 ML (SDV) Z0FRAN IVP PRN (09:45)
[2022-09-16] MEDS ORDERED: MEPERIDINE (DEMEROL) INJ 50 MG/ML IVP ONE (09:45)
--- NOTE | 2022-09-16 10:41 | Anesthesia-General Post-Op ---
General Patient Condition Mental Status/LOC: Same as Preop Cardiovascular: Satisfactory Nausea/Vomiting: Absent Respiratory: Satisfactory Pain: Controlled Complications: Absent Post Op Complications Complications None Follow Up Care/Instructions Patient Instructions None needed. Anesthesia/Patient Condition Patient Condition Patient is doing well, no complaints, stable vital signs, no apparent adverse anesthesia problems. No complications reported per nursing. ROBERTO JIANG CRNA Sep 16, 2022 10:41
[2022-09-16] MEDS ORDERED: HYDROcodone/ACETAMINOPHEN 5 MG/325 MG TABLET ONE (10:57)
[2022-09-16] MEDS ORDERED: HYDROcodone/ACETAMINOPHEN 5 MG/325 MG TABLET PO ONE (11:00)
--- NOTE | 2022-09-16 17:37 | Diagnostic Imaging Report ---
INDICATION: Fluoroscopy for intraoperative cholangiogram. Fluoroscopy was provided in the OR during intraoperative cholangiogram. 18 seconds of fluoroscopic time was utilized. 117 images were obtained. Images demonstrate contrast being injected via the cystic duct remnant. Extrahepatic bile duct is normal in caliber. There is free flow into the duodenum. No filling defects are seen to suggest retained stone. IMPRESSION: Fluoroscopy during intraoperative cholangiogram. Dictated by: Dictated on workstation # [id number]
== END 2022-09-16 11:50 | disposition home or self-care (01) ==
LOC: SDC 07:05
PROVIDERS: ATTEND Surgery
DX: K80.10 Calculus of gallbladder with chronic cholecystitis without obstruction (principal); E66.01 Morbid (severe) obesity due to excess calories; Z85.3 Personal history of malignant neoplasm of breast; Z68.35 Body mass index [BMI] 35.0-35.9, adult
CPT/HCPCS: 76000; 87081; 88304; 94664